=== PATIENT | male | born 1990 | race African-American/Black ===

== ENCOUNTER 2022-05-26 04:02 | Emergency (ER) | payer BC, MEDICAID ==
[2022-05-26] MEDS ORDERED: Azithromycin 250 MG Tab PO STA (04:08)
[2022-05-26] MEDS ORDERED: predniSONE 20 MG Tab PO ONE ×2 (04:09→04:19)
[2022-05-26] MEDS ORDERED: Take Home: Azithromycin 250 MG, 2 Tab Pack ONE (04:18)
[2022-05-26] MEDS ORDERED: Take Home: predniSONE 20 MG, 2 Tab Pack ONE (04:18)
== END 2022-05-26 04:30 | disposition home or self-care (01) ==
LOC: VM.ED 04:02
DX: J20.9 Acute bronchitis, unspecified (principal)
CPT/HCPCS: 99283; A9270-GY; J7512

== ENCOUNTER 2023-07-19 03:35 | Emergency (ER) | payer BC, MEDICAID ==
[2023-07-19] MEDS ORDERED: Ketorolac 30 MG/ML SDV IM ONE (03:50)
[2023-07-19] MEDS ORDERED: Take Home: Amoxicillin/Clavulanate K 875-125 MG Tab, 2 Tab Pack PO ONE (03:51)
== END 2023-07-19 04:13 | disposition home or self-care (01) ==
LOC: VM.ED 03:35
DX: J02.9 Acute pharyngitis, unspecified (principal)
CPT/HCPCS: 96372; 99282; 99283; A9270; J1885